=== PATIENT | female | born 1985 | race Hispanic/Latino ===

== ENCOUNTER 2024-04-26 07:25 | Day surgery (SDC) | payer MEDICAID ==
[2024-04-26] VITALS (10 sets, daily range): BP systolic 94–106; BP diastolic 50–70; PULSE 69–84; RESP 15–18; TEMP 97.4–98.1
[~2024-04-26] VITALS: Ht 149.9 cm; Wt 75.3 kg
[~2024-04-26 07:25] MED LIST: PREN-64 PO
[2024-04-26] MEDS: 0.9%NACL 1000ML 1,000 ML IV ONE (07:47)
[2024-04-26] MEDS ORDERED: SODIUM TETRADECYL SULFATE 30 MG/ML 2 ML VIAL IV ONE (08:00)
[2024-04-26] MEDS ORDERED: proPOFol 10 MG/ML 20ML VIAL IV ONE (08:27)
[2024-04-26] MEDS ORDERED: LIDOCAINE PF 100MG/5ML (2%) SYRINGE 5ML ONE (08:27)
== END 2024-04-26 09:40 | disposition home or self-care (01) ==
LOC: DAH 07:25
PROVIDERS: ATTEND Surgery
DX: K21.9 Gastro-esophageal reflux disease without esophagitis (principal); J45.909 Unspecified asthma, uncomplicated; E66.09 Other obesity due to excess calories; E78.5 Hyperlipidemia, unspecified; Z79.899 Other long term (current) drug therapy; Z98.84 Bariatric surgery status; Z68.33 Body mass index [BMI] 33.0-33.9, adult; Z98.890 Other specified postprocedural states
CPT/HCPCS: 43236; 81025; J7030 ×2; J3490 ×3; A4620; A4215 ×2; A4223; A4657 ×2; A4222; A4221; A4663; A4606; J2001; J2704